=== PATIENT | female | born 1960 | race Hispanic/Latino ===

== ENCOUNTER 2023-06-04 12:29 | Emergency (ER) | payer SELFPAY ==
[2023-06-04] VITALS (12 sets, daily range): BP systolic 115–156; BP diastolic 45–69
[2023-06-04 12:55] LABS: BASO% 0.3 % (0-3); EOS% 0.9 % (0-8); HEMATOCRIT 37.5 % (37.0-47.0); HEMOGLOBIN 11.9 g/dl (12.0-16.0); IMMATURE GRANULOCYTES 0.2 % (0.0-5.0); LYMPH% 19.7 % (15-41); MEAN CORPUSCULAR HGB 27.6 pG CALC (26.0-32.0); MEAN CORPUSCULAR HGB CONC 31.7 g/dL CAL (32.0-36.0); NEUT# 7.16 thou/uL (2.00-7.15); NEUT% 72.9 % (42-76); RED BLOOD COUNT 4.31 mill/uL (4.20-5.60); RED CELL DISTRI WIDTH 14.5 % (11.5-15.5)
[2023-06-04 13:11] LABS: ALKALINE PHOSPHATASE 103 u/l (38-126); BILIRUBIN, TOTAL 0.6 mg/dL (0.02-1.3); BUN 21 mg/dL (8-23); BUN/CREATININE RATIO 34 (12-20 (CALC)); CARBON DIOXIDE 22 mmol/l (22-30); CREATININE 0.6 mg/dL (0.5-1.0); GFR FOR AFR.AMER. > 60 ML/MIN (>=60 (CALC)); GFR OTHER RACES > 60 ML/MIN (>=60 (CALC)); POTASSIUM 4.8 mmol/l (3.5-5.1); SGOT/AST 36 u/l (9-36); TOTAL PROTEIN 7.9 g/dL (6.3-8.2)
[2023-06-04 13:13] LABS: ALBUMIN 4.3 g/dL (3.2-5.0); ANION GAP 19 (6-22 (CALC)); CHLORIDE 95 mmol/l (95-108); SODIUM 131 mmol/l (137-146)
[2023-06-04] MEDS ORDERED: ATORVASTATIN CA40 MG PO (13:43)
[2023-06-04] MEDS ORDERED: VENTOLIN HFA108 MCG IN (13:46)
[2023-06-04] MEDS ORDERED: VITAMIN D-32000 UNI1 PO (13:47)
[2023-06-04] MEDS ORDERED: ENALAPRIL2.5 MG PO (13:48)
[2023-06-04] MEDS ORDERED: AMARYL4 MG PO (13:49)
[2023-06-04] MEDS ORDERED: JANUVIA50 MG PO (13:50)
[2023-06-04] MEDS ORDERED: HYDROCHLOROT25 MG PO (13:50)
[2023-06-04] MEDS ORDERED: METFORMIN HCL1000 MG PO (13:51)
[2023-06-04 14:01] LABS: URINE BILIRUBIN - DIPSTICK NEGATIVE (NEGATIVE); URINE BLOOD DIPSTICK NEGATIVE (NEGATIVE); URINE COLOR YELLOW; URINE GLUCOSE - DIPSTICK NEGATIVE (NEGATIVE); URINE KETONE NEGATIVE (NEGATIVE); URINE LEUK ESTERASE NEGATIVE (NEGATIVE); URINE PH 5.5 (4.5-8.0); URINE PROTEIN - DIPSTICK NEGATIVE (NEG-TRACE); URINE UROBILINOGEN - DIPSTICK 0.2 E.U./dL (0.2)
[2023-06-04 14:02] LABS: URINE NITRITE - DIPSTICK NEGATIVE (Negative)
== END 2023-06-04 16:00 | disposition home or self-care (01) | DRG 639 ==
LOC: ED 12:29
PROVIDERS: Nurse Practitioner
DX: E11.649 Type 2 diabetes mellitus with hypoglycemia without coma (principal); Z79.84 Long term (current) use of oral hypoglycemic drugs